=== PATIENT | male | born 1965 | race Caucasian/White ===

== ENCOUNTER 2019-04-07 13:40 | Emergency (ER) | payer OTHER ==
[~2019-04-07] VITALS: Ht 180.3 cm; Wt 136.1 kg
[~2019-04-07 13:40] MED LIST: CARI350; CELE200; CIME400 PO; DIAZ5 PO; ESCI10; HYDACE5; HYDACE5 PO; HYDMOR2 PO; IBUP600 PO; LEVSOD50 PO; LISI10; MEDIPLAST CORN1 EACH TP; METH40; NITR.4SL SL; Nizoral15 GM TOP; OXYACE10; TRAZ50; [UNRECOGNIZED DRUG - OTHER]
[2019-04-07 14:15] LABS: BASOPHILS ABSOLUTE AUTO 0.07 K/mm3 (0.00-0.23); BASOPHILS PERCENT AUTO 0 % (0-2); EOSINOPHILS ABSOLUTE AUTO 0.16 K/mm3 (0.00-0.68); EOSINOPHILS PERCENT AUTO 1 % (0-6); Hemoglobin 14.7 g/dL (13.5-17.5); IMMATURE GRAN PERCENT AUTO 1 % (0-1); LYMPHOCYTES ABSOLUTE AUTO 2.55 K/mm3 (0.84-5.20); LYMPHOCYTES PERCENT AUTO 16 % (21-46); MONOCYTES ABSOLUTE AUTO 0.97 K/mm3 (0.16-1.47); MONOCYTES PERCENT AUTO 6 % (4-13); Mean Corpuscular HGB 28.3 pg (26.0-34.0); Mean Corpuscular Volume 89 fL (80-100); Mean Platelet Volume 10.2 fL (9.1-12.4); NEUTROPHILS ABSOLUTE AUTO 12.49 K/mm3 (1.96-9.15); NEUTROPHILS PERCENT AUTO 77 % (41-73); Platelet Count 338 K/mm3 (150-400); RDW Coefficient Variation 13.9 % (11.7-14.2); RDW Standard Deviation 45.2 fL (35.1-46.3); Red Blood Cell Count 5.19 M/mm3 (4.30-5.90); White Blood Cell Count 16.34 K/mm3 (4.00-11.30)
[2019-04-07 14:40] LABS: Alanine Aminotransfer (ALT/SGP 22 U/L (12-78); Albumin, Blood 3.3 g/dL (3.4-5.0); Albumin/Globulin Ratio 0.7 (0.8-1.8); Alk Phos 116 U/L (50-136); Anion Gap 6 mmol/L (6-16); Aspartate Aminotrans (AST/SGOT 20 U/L (12-37); Bilirubin, Total 0.2 mg/dL (0.1-1.0); Blood Urea Nitrogen 13 mg/dL (8-24); Bun/Creatinine Ratio 10.7 (12.0-20.0); CO2, Blood 24 mmol/L (21-32); Calcium, Blood 8.9 mg/dL (8.5-10.1); Chloride, Blood 108 mmol/L (98-108); Creatinine, Blood 1.21 mg/dL (0.60-1.20); Globulin, Blood 4.5 g/dL (2.2-4.0); Glomerular Filtration Rate >60 (60-); Glucose, Blood 99 mg/dL (70-99); Potassium, Blood 3.7 mmol/L (3.5-5.5); Sodium, Blood 138 mmol/L (136-145); Total Protein, Blood 7.8 g/dL (6.4-8.2)
[2019-04-07 15:10] LABS: Source, Urine Clean Catch
[2019-04-07 15:21] LABS: Bilirubin, Urine Neg (Neg); Blood, Urine 5+ (Neg); Glucose Qualitative, Urine Neg (Neg); Ketones, Urine Neg (Neg); Leukocyte Esterase, Urine Neg (Neg); Nitrite, Urine Neg (Neg); Protein, Urine 3+ (Neg); Urobilinogen, Urine NORM (Normal)
[2019-04-07 15:27] LABS: Appearance, Urine Clear (Clear); Color, Urine Yellow (P-Yellow)
[2019-04-07 15:28] LABS: Bacteria Rare /hpf; Squamous Epithelial Cells Rare /hpf (Few); White Blood Cells, Urine Not Seen /hpf (0-5)
[2019-04-07] MEDS ORDERED: ONDA4ODT MM (16:54)
[2019-04-07] MEDS ORDERED: Flagyl250 MG PO (16:54)
[2019-04-07] MEDS ORDERED: Norco 5-325 Ta1 EACH PO (16:54)
[2019-04-07] MEDS ORDERED: Cipro250 MG PO (16:54)
== END 2019-04-07 17:08 | disposition home or self-care (01) ==
LOC: ER 13:40
PROVIDERS: Physician Assistant
DX: K52.9 Noninfective gastroenteritis and colitis, unspecified (principal); G89.29 Other chronic pain; F17.200 Nicotine dependence, unspecified, uncomplicated; Z79.899 Other long term (current) drug therapy
CPT/HCPCS: 36415; 74176; 80053; 81001; 83690; 85025; 93005; 93010; 99284-25; A9270-GY

== ENCOUNTER 2020-10-23 01:09 | Inpatient (IN) | payer OTHER | END 2020-10-25 13:21 | disposition home or self-care (01) | DRG 246 | LOC: ER 01:09 → ICUW 01:20 → ICUE 01:28 → ICUW 10-24 15:35 → PCU 10-24 23:15 | PROVIDERS: ADMIT Internal Medicine Cardiovascular Disease | PROC: 027034Z Dilation of Coronary Artery, One Artery with Drug-eluting Intraluminal Device, Percutaneous Approach (ICD-10-PCS; principal; 2020-10-23) | PROC: B2111ZZ Fluoroscopy of Multiple Coronary Arteries using Low Osmolar Contrast (ICD-10-PCS; 2020-10-23) | DX: I21.09 ST elevation (STEMI) myocardial infarction involving other coronary artery of anterior wall (principal); I71.00 Dissection of unspecified site of aorta; G89.29 Other chronic pain; I10 Essential (primary) hypertension; Z20.822 Contact with and (suspected) exposure to COVID-19; M54.9 Dorsalgia, unspecified; F17.200 Nicotine dependence, unspecified, uncomplicated; Z98.890 Other specified postprocedural states; Z79.899 Other long term (current) drug therapy; Z79.891 Long term (current) use of opiate analgesic ==

== ENCOUNTER 2024-01-22 17:36 | Inpatient (IN) | payer OTHER ==
[~2024-01-22] VITALS: Ht 180.3 cm; Wt 131.1 kg
[~2024-01-22 17:36] MED LIST changes: +ASPI81CH PO; +ATOR80 PO; +CLOP75 PO; +Cipro250 MG PO; +Flagyl250 MG PO; +Isosorbide Mono30 MG PO; +LISI5 PO; +METO25ER PO; +MOTRIN IB200 MG PO; +Norco 5-325 Ta1 EACH PO; +ONDA4ODT MM
[2024-01-22 18:36] LABS: BASOPHILS ABSOLUTE AUTO 0.06 K/mm3 (0.00-0.23); BASOPHILS PERCENT AUTO 0 % (0-2); EOSINOPHILS ABSOLUTE AUTO 0.07 K/mm3 (0.00-0.68); EOSINOPHILS PERCENT AUTO 1 % (0-6); Hematocrit 44.9 % (37.0-53.0); Hemoglobin 14.7 g/dL (13.5-17.5); IMMATURE GRAN ABSOLUTE AUTO 0.09 K/mm3 (0.00-0.10); IMMATURE GRAN PERCENT AUTO 1 % (0-1); LYMPHOCYTES ABSOLUTE AUTO 1.83 K/mm3 (0.84-5.20); LYMPHOCYTES PERCENT AUTO 12 % (21-46); MONOCYTES ABSOLUTE AUTO 1.02 K/mm3 (0.16-1.47); MONOCYTES PERCENT AUTO 7 % (4-13); Mean Corpuscular HGB 29.1 pg (26.0-34.0); Mean Corpuscular HGB Conc 32.7 g/dL (31.5-36.5); Mean Corpuscular Volume 89 fL (80-100); NEUTROPHILS ABSOLUTE AUTO 11.92 K/mm3 (1.96-9.15); NEUTROPHILS PERCENT AUTO 80 % (41-73); Platelet Count 284 K/mm3 (150-400); RDW Coefficient Variation 14.3 % (11.7-14.2); RDW Standard Deviation 46.2 fL (35.1-46.3); Red Blood Cell Count 5.06 M/mm3 (4.30-5.90); White Blood Cell Count 14.99 K/mm3 (4.00-11.30)
[2024-01-22 18:49] LABS: Albumin/Globulin Ratio 0.7 (0.8-1.8); Bilirubin, Total 0.3 mg/dL (0.1-1.0); Bun/Creatinine Ratio 13.4 (12.0-20.0); Calcium, Blood 8.9 mg/dL (8.5-10.1); Creatinine, Blood 1.12 mg/dL (0.60-1.20); Globulin, Blood 4.1 g/dL (2.2-4.0); Potassium, Blood 3.9 mmol/L (3.5-5.5); Total Protein, Blood 7.1 g/dL (6.4-8.2)
[2024-01-23] MEDS ORDERED: FLU VACC TS2024-25(6MOS UP)/PF 45 MCG/0.5 ML SYRINGE IM SCH (00:05)
[2024-01-23] MEDS ORDERED: Magnesium Hydroxide Conc 10 ML UDC PO PRN (00:05)
[2024-01-23] MEDS ORDERED: Bisacodyl 10 MG Supp PR PRN (00:10)
[2024-01-23] MEDS ORDERED: Acetaminophen 325 MG TABLET PO PRN (00:10)
[2024-01-23] MEDS ORDERED: Nitroglycerin 0.4 MG SUBL SL PRN (00:10)
[2024-01-23 06:47] LABS: BASOPHILS ABSOLUTE AUTO 0.07 K/mm3 (0.00-0.23); BASOPHILS PERCENT AUTO 1 % (0-2); EOSINOPHILS ABSOLUTE AUTO 0.15 K/mm3 (0.00-0.68); EOSINOPHILS PERCENT AUTO 1 % (0-6); Hematocrit 45.2 % (37.0-53.0); Hemoglobin 14.9 g/dL (13.5-17.5); IMMATURE GRAN ABSOLUTE AUTO 0.07 K/mm3 (0.00-0.10); IMMATURE GRAN PERCENT AUTO 1 % (0-1); LYMPHOCYTES ABSOLUTE AUTO 1.84 K/mm3 (0.84-5.20); LYMPHOCYTES PERCENT AUTO 14 % (21-46); MONOCYTES ABSOLUTE AUTO 0.94 K/mm3 (0.16-1.47); MONOCYTES PERCENT AUTO 7 % (4-13); Mean Corpuscular HGB 29.4 pg (26.0-34.0); Mean Corpuscular Volume 89 fL (80-100); Mean Platelet Volume 10.1 fL (9.1-12.4); NEUTROPHILS ABSOLUTE AUTO 9.78 K/mm3 (1.96-9.15); NEUTROPHILS PERCENT AUTO 76 % (41-73); Platelet Count 286 K/mm3 (150-400); RDW Coefficient Variation 14.6 % (11.7-14.2); RDW Standard Deviation 47.1 fL (35.1-46.3); Red Blood Cell Count 5.07 M/mm3 (4.30-5.90); White Blood Cell Count 12.85 K/mm3 (4.00-11.30)
[2024-01-23 07:15] LABS: Albumin, Blood 2.9 g/dL (3.4-5.0); Anion Gap 11 mmol/L (3-11); Blood Urea Nitrogen 15 mg/dL (8-24); Bun/Creatinine Ratio 14.3 (12.0-20.0); CO2, Blood 24 mmol/L (21-32); Calcium, Blood 8.7 mg/dL (8.5-10.1); Chloride, Blood 112 mmol/L (98-108); Creatinine, Blood 1.05 mg/dL (0.60-1.20); Glomerular Filtration Rate 82 (60-); Glucose, Blood 107 mg/dL (70-99); Magnesium, Blood 1.8 mg/dL (1.6-2.4); Phosphorus, Blood 3.6 mg/dL (2.5-4.9); Potassium, Blood 3.8 mmol/L (3.5-5.5); Sodium, Blood 143 mmol/L (136-145)
[2024-01-23] MEDS ORDERED: Famotidine 20 MG Tab PO SCH (09:00)
[2024-01-23] MEDS ORDERED: Aspirin 81 MG TabEC PO SCH (09:00)
[2024-01-23] MEDS ORDERED: Docusate Sodium 100 MG Cap PO SCH (09:00)
[2024-01-23] MEDS ORDERED: Enoxaparin 40 MG/0.4 ML SYR SC SCH (09:00)
[2024-01-23] MEDS ORDERED: Clopidogrel Bisulfate 75 MG Tab PO SCH (09:00)
[2024-01-23] MEDS ORDERED: Atorvastatin 40 MG Tab PO SCH (09:00)
[2024-01-23] MEDS ORDERED: Sennosides 8.6 MG Tab PO SCH (09:00)
[2024-01-23] MEDS ORDERED: Metoprolol Succinate 25 MG TABCR PO SCH (09:00)
[2024-01-23] MEDS ORDERED: Isosorbide Mononitrate 30 MG TABCR PO SCH (09:00)
[2024-01-23 11:56] VITALS: BP 147/82
[2024-01-23] MEDS ORDERED: ACET500 PO (12:05)
--- NOTE | 2024-01-23 12:23 | NUR ---
ADMIT NOTE- RN JULY RECIEVED REPORT FROM ED RN AND PASSED THAT REPORT ON TO THIS RN. PT ARRIVED ON MEDICAL FLOOR VSS. PT PLACED ON TELE BOX VERIFIED SBR AT 59. PT IS IN BED, CALL LIGHT IN REACH NO S&S OF DISTRESS ON ROOM AIR. LUNG SOUNDS WHEEZY ON INSPIRATION. PT ADMITS TO SMOKING CIGARS. PT IS HAVING A STRESS TEST DONE TODAY. DENES CP AT THIS TIME
[2024-01-23] MEDS ORDERED: Aminophylline 250MG / 10ML 10 ML Vial ONE (14:09)
[2024-01-23] MEDS ORDERED: Regadenoson 0.4 MG/5 ML SYRINGE ONE (14:09)
[2024-01-23 15:29] VITALS: BP 152/74
--- NOTE | 2024-01-23 18:39 | NUR ---
SSHIFT SUMMARY- PT ALERT AND ORIENTED, INDEPENDENT IN THE ROOM. PT ADMITTED FOR CHEST PAIN. PT DENIES N/T AT THE TIME JULIANA ASSESSMENT. FIRST HALF OF CARDIAC STRESS TEST COMPLETED TODAY, SECOND HALF TO BE COMPLETED TOMORROW MORNING. PT IN BED, CALL LIGHT IN REACH NO S&S OF DISTRESS NOTED. PT TO BE NPO WITH WATER PRIVILAGES AT MIDNIGHT.
[2024-01-23 21:39] VITALS: BP 150/76
[2024-01-24 04:20] VITALS: BP 158/78
--- NOTE | 2024-01-24 06:48 | NUR ---
Shift Summary Pt has been NPO since 0000 except water in anticipation of part 2 stress test. He has had no caffine since early yesterday afternoon. He's had no complaints of chest pain. On tele with no events. AOx4, independent in the room. Slept well t/o the night.
[2024-01-24 07:20] VITALS: BP 178/85
[2024-01-24 14:53] VITALS: BP 129/71
--- NOTE | 2024-01-24 18:34 | NUR ---
SUMMARY- PT COMPLETED STRESS AND SUBSEQUENT ECHO, RESULTS CONVEYED BY RN INSTRUCTIONS OF DR WALTER. PT OK FOR DISCHARGE HOME THIS PM. NO CHANGES IN MEDS. PT ANXIOUS TO GET HOME WITH FAMILY CINDI. EXPIDITING DC HOME. CALLED DR WALTER FOR ORDERS.
--- NOTE | 2024-01-24 19:34 | NUR ---
4785- PT DISCHARGED WITH DC INSTRUCTIONS. NO NEW MEDS. PT TO F/U WITH CARDIOLOGY AND PCP. AMBULATED WITH FAMILY OUT TO PRIVATE CAR. DECLINED WHEELCHAIR, STEADY ON FEET AND NO CHEST PAIN. IV DC'D.
== END 2024-01-24 18:57 | disposition home or self-care (01) | DRG 313 ==
LOC: ER 17:36 → ERHOLD 01-23 00:04 → MEDS 01-23 11:46
PROVIDERS: Family Medicine; Student in an Organized Health Care Education/Training Program; ADMIT Internal Medicine
DX: R07.9 Chest pain, unspecified (principal); I50.30 Unspecified diastolic (congestive) heart failure; Z68.41 Body mass index [BMI] 40.0-44.9, adult; I11.0 Hypertensive heart disease with heart failure; I25.2 Old myocardial infarction; Z95.5 Presence of coronary angioplasty implant and graft; I25.10 Atherosclerotic heart disease of native coronary artery without angina pectoris; K04.7 Periapical abscess without sinus; M54.9 Dorsalgia, unspecified; G89.29 Other chronic pain; Z79.82 Long term (current) use of aspirin; Z79.02 Long term (current) use of antithrombotics/antiplatelets; Z79.899 Other long term (current) drug therapy; F17.210 Nicotine dependence, cigarettes, uncomplicated; E66.9 Obesity, unspecified
CPT/HCPCS: 71046; 71260; 78452; 80053; 80069; 83735; 83880; 84484; 85025; 85379; 93005; 93010; 93017; 99285-25; A9270; A9500; C8929; J0280; J1650; J2785; Q9957; Q9967